=== PATIENT | male | born 1950 | race Caucasian/White ===

== ENCOUNTER 2022-07-15 19:29 | Inpatient (IN) | payer MEDICARE, OTHER ==
[~2022-07-15] VITALS: Ht 175.3 cm; Wt 55.3 kg
--- NOTE | 2022-07-15 19:40 | NUR ---
Dr. Salinas at bedside for MSE.
--- NOTE | 2022-07-15 20:00 | NUR ---
Pt medically cleared by Dr. Salinas.
[2022-07-15] MEDS ORDERED: TRAZ-257 PO (20:04)
[2022-07-15] MEDS ORDERED: DULO-77 PO (20:04)
[2022-07-15] MEDS ORDERED: ACET325T53 PO (20:04)
[2022-07-15] MEDS ORDERED: BISA10SU61 RC (20:04)
[2022-07-15] MEDS ORDERED: LORA0.5T48 PO (20:04)
[2022-07-15] MEDS ORDERED: LACT1CAP73 PO (20:04)
[2022-07-15] MEDS ORDERED: GABA300C PO (20:04)
[2022-07-15] MEDS ORDERED: MULT-225 PO (20:04)
[2022-07-15] MEDS ORDERED: NA P133E RC (20:04)
[2022-07-15] MEDS ORDERED: DOCU-141 PO (20:04)
[2022-07-15] MEDS ORDERED: MAGN400O6 PO (20:04)
[2022-07-15] MEDS ORDERED: VITA-287 PO (20:04)
[2022-07-15] MEDS ORDERED: MELO-107 PO (20:04)
[2022-07-15] MEDS ORDERED: ONDA4TAB5 PO (20:04)
--- NOTE | 2022-07-15 20:14 | NUR ---
Report given to Ann JOHNSON [facility].
[2022-07-15] MEDS ORDERED: FLEET ENEMA 133 ML BOTTLE RC PRN (21:00)
[2022-07-15] MEDS ORDERED: BISACODYL 10 MG SUPP.RECT RC PRN (21:00)
[2022-07-15] MEDS ORDERED: DOCUSATE SODIUM 100 MG CAPSULE PO PRN (21:00)
--- NOTE | 2022-07-15 21:00 | NUR ---
Received report from Jeff nurse on MR Fleming[facility]ovan Stevens. Patient will be admitting to room 139 bed A. Patient is alert and oriented x 3. Breathing easy and regular, Skin is intact except a small tear on patient right forehead which he describes that it will not heal and a scratch niya on his right wrist. Abdomen soft non distended bowel sound present all four quadrants. On assessment patient states that he has neuropathy pain that so bad for that he wants assisted suicide and it is legal in [place]. Patient also says that he takes gabapentin but all it does is to make him drowsy but not does not help with the pain. When ask about suicidal ideation patient states that they wont let me. Patient is disrobed completely, personal items in contraband locker close supervision and safety maintained.
[2022-07-15] MEDS ORDERED: ACETAMINOPHEN 325 MG TABLET PO PRN (21:15)
[2022-07-15 22:55] VITALS: BP 132/71
[2022-07-15] MEDS ORDERED: MAG HYDROX/AL HYDROX/SIMETH 30 ML LIQUID UDC PO PRN (23:00)
[2022-07-15] MEDS ORDERED: ZOLPIDEM 5 MG TABLET PO PRN (23:00)
[2022-07-15] MEDS ORDERED: MAGNESIUM HYDROXIDE 30 ML LIQUID UDC PO PRN (23:00)
[2022-07-15] MEDS ORDERED: BLOOD SUGAR DIAGNOSTIC 1 EACH STRIP VI ONE (23:00)
[2022-07-16 07:55] VITALS: BP 126/96
[2022-07-16 08:21] LABS: ALANINE AMINOTRANSFERASE 14 U/L (16-63); ALKALINE PHOSPHATASE 54 U/L (50-136); ASPARTATE AMINOTRANSFERASE < 5 U/L (15-37); BILIRUBIN,TOTAL 0.6 mg/dL (0.2-1.0); CARBON DIOXIDE 32 mmol/L (21-32); CHLORIDE 104 mmol/L (98-107); GLUCOSE 91 mg/dL (74-106); TOTAL PROTEIN, SERUM 6.1 g/dL (6.4-8.2); UREA NITROGEN, BLOOD 27 mg/dL (7-18)
[2022-07-16] MEDS: MULTIVITAMINS,THERAPEUTIC TABLET PO SCH (09:56)
[2022-07-16] MEDS: VITAMIN B COMPLEX 1 TABLET PO SCH (09:56)
[2022-07-16] MEDS: CULTURELLE CAPSULE PO SCH (09:57)
[2022-07-16] MEDS: MELOXICAM 7.5 MG TABLET PO SCH (09:57)
[2022-07-16] MEDS: TRAMADOL HCL 50 MG TABLET PO PRN ×2 (10:26→21:13)
[2022-07-16] MEDS: GABAPENTIN 300 MG CAPSULE PO SCH ×3 (10:29→16:47)
--- NOTE | 2022-07-16 12:23 | NUR ---
Gps/Pile Driver Operator Helper- Patient verbalized , he is scared to , claimed he does not want to hurt himself. Had been compliant with his routine medications ,guarded, encouraged to continue verbalizing his needs.Claimed pain a little better but it does makes him nervous. Encouraged to attend his group activity,
[2022-07-16] MEDS: LORAZEPAM 0.5 MG TABLET PO PRN (13:40)
--- NOTE | 2022-07-16 15:18 | NUR ---
Called [facility] to find out barbi backpack , claimed he has some belongings and wallet that didnt come with him. No such belonging was noted per facility , claimed they sent alll that necessary (pt. own) No such belongings was noted, per ER at [facility] was [facility] , but does not know the number .
[2022-07-16 16:31] VITALS: BP 152/79
[2022-07-16] MEDS: DULOXETINE 60 MG CAPSULE.DR PO SCH (16:48)
[2022-07-16 20:26] VITALS: BP 120/84
[2022-07-17] MEDS: LORAZEPAM 0.5 MG TABLET PO PRN (03:19)
[2022-07-17] MEDS: ACETAMINOPHEN 325 MG TABLET PO PRN (03:19)
--- NOTE | 2022-07-17 06:41 | NUR ---
Received patient in bed. Awake and alert. This editorial writer was able to engage in a conversation with the patient. Mostly about Faith, the bible, Old musicals and songs. 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 Not sure if that is true or not. The patients speech was tangental and the topics were superficial. Ativan was given during the night when patient showed an increase in anxiety. A pain medication was also given earlier in the shift. Safety Stratiges are in place, including fall and suicide precautions. A verbal contract for safety was made between patient and this editorial writer. Patient denies active SI at this time but is clear about the pain in his legs. Continuing to provide comfort as needed.
[2022-07-17 07:59] VITALS: BP 118/72
[2022-07-17] MEDS: GABAPENTIN 300 MG CAPSULE PO SCH ×3 (08:23→16:46)
[2022-07-17] MEDS: DULOXETINE 60 MG CAPSULE.DR PO SCH ×2 (08:23→16:46)
[2022-07-17] MEDS: MULTIVITAMINS,THERAPEUTIC TABLET PO SCH (08:23)
[2022-07-17] MEDS: MELOXICAM 7.5 MG TABLET PO SCH (08:24)
[2022-07-17] MEDS: CULTURELLE CAPSULE PO SCH (08:24)
[2022-07-17] MEDS: VITAMIN B COMPLEX 1 TABLET PO SCH (08:24)
--- NOTE | 2022-07-17 14:40 | NUR ---
Gps/Roller Skate Repairer- called [facility] to check patient's belongings/valuables , spoked with Ray , was able to checked valuables and are kept in the safe , claimed will hand them to the Exec. Creative Director when she comes in tomorrow. Informed and reassured Topher (patient) that his valuables are in the same ([facility] [phone])
[2022-07-17] MEDS: ENSURE ENLIVE (VAN) 240 ML LIQUID PO SCH ×2 (14:48→16:47)
[2022-07-17 16:16] VITALS: BP 121/64
[2022-07-17 19:58] VITALS: BP 116/66
--- NOTE | 2022-07-18 06:56 | NUR ---
Patient slept 7.45. A verbal contract for safety was made between this senior medical writer and the patient. No requests for pain medication from the patient and no anxiety noted. Safety Stratiges remain in place and ongoing encouragement provided when needed.
[2022-07-18 07:58] VITALS: BP 126/63
[2022-07-18] MEDS: DULOXETINE 60 MG CAPSULE.DR PO SCH ×2 (08:43→16:25)
[2022-07-18] MEDS: ENSURE ENLIVE (VAN) 240 ML LIQUID PO SCH ×2 (08:43→16:25)
[2022-07-18] MEDS: MULTIVITAMINS,THERAPEUTIC TABLET PO SCH (08:43)
[2022-07-18] MEDS: CULTURELLE CAPSULE PO SCH (08:43)
[2022-07-18] MEDS: MELOXICAM 7.5 MG TABLET PO SCH (08:43)
[2022-07-18] MEDS: VITAMIN B COMPLEX 1 TABLET PO SCH (08:43)
[2022-07-18] MEDS: GABAPENTIN 300 MG CAPSULE PO SCH ×3 (08:43→16:25)
[2022-07-18] MEDS: TRAMADOL HCL 50 MG TABLET PO PRN (12:05)
--- NOTE | 2022-07-18 12:16 | NUR ---
DOLORES Initial Discharge Note: Pt currently resides at [facility] located at [address] [place] [address] ([phone]). DOLORES spoke with Brittany in admissions who stated that they cannot confirm at this time if pt is accepted back. Brittany asked this database report writer to send updated clinicals prior to discharge to confirm pt's return. DOLORES communicated this with pt and psychiatrist, Dr. Mathew. Pt stated he is not close with his brother. However, pt gave consent to this database report writer to speak to him if needed (Thor [phone]). DOLORES will continue to work with pt, family and MD to ensure a safe and proper discharge plan.
[2022-07-18 15:27] VITALS: BP 127/64
[2022-07-18] MEDS: LORAZEPAM 0.5 MG TABLET PO PRN (15:52)
--- NOTE | 2022-07-18 16:45 | NUR ---
GPS: Nursing Notes: Destructive Behavior To Self: Patient is awake and responding to his name, gets easily irritable when redirected, impaired judgment, depressed mood and anxious affect, low energy level, isolative and withdrawn in his room, refusing to participate in therapeutic groups, unable to formulate a viable plan for self care, episode of trying to cheek his medications, redirected and explained the pros and cons of medications. Patient swallow his medications, continue to monitor for safety, continue with treatment plan.
[2022-07-18] MEDS: ONDANSETRON HCL 4 MG TABLET PO PRN (17:12)
[2022-07-18 20:00] VITALS: BP 115/70
[2022-07-19] MEDS: TRAMADOL HCL 50 MG TABLET PO PRN ×2 (07:22→16:34)
[2022-07-19] MEDS: LORAZEPAM 0.5 MG TABLET PO PRN (07:23)
[2022-07-19] MEDS: ENSURE ENLIVE (VAN) 240 ML LIQUID PO SCH ×2 (08:00→16:34)
[2022-07-19 08:02] VITALS: BP 116/62
[2022-07-19] MEDS: DULOXETINE 60 MG CAPSULE.DR PO SCH ×2 (08:14→16:34)
[2022-07-19] MEDS: CULTURELLE CAPSULE PO SCH (08:14)
[2022-07-19] MEDS: MULTIVITAMINS,THERAPEUTIC TABLET PO SCH (08:14)
[2022-07-19] MEDS: VITAMIN B COMPLEX 1 TABLET PO SCH (08:14)
[2022-07-19] MEDS: MELOXICAM 7.5 MG TABLET PO SCH (08:14)
[2022-07-19] MEDS: GABAPENTIN 300 MG CAPSULE PO SCH ×3 (08:14→16:33)
[2022-07-19] MEDS: ONDANSETRON HCL 4 MG TABLET PO PRN (12:45)
--- NOTE | 2022-07-19 14:09 | NUR ---
GPS: Nursing Notes: Destructive Behavior To Self: Patient is awake and responding to his name, depressed mood and anxious affect, stated "Nobody woke me up and gave me my medication.." redirected and setting limits during shift, unable to formulate a viable plan for self care, in and out of therapeutic groups, low energy level, continue to monitor for safety, verbally janett for safety, continue to monitor for safety, continue with treatment plan.
[2022-07-19 16:00] VITALS: BP 140/76
[2022-07-19 20:00] VITALS: BP 146/80
[2022-07-19] MEDS: ACETAMINOPHEN 325 MG TABLET PO PRN (21:16)
[2022-07-19] MEDS: MAGNESIUM HYDROXIDE 30 ML LIQUID UDC PO PRN (21:31)
[2022-07-20] MEDS: TRAMADOL HCL 50 MG TABLET PO PRN (06:13)
[2022-07-20 07:50] VITALS: BP 133/68
[2022-07-20] MEDS: ENSURE ENLIVE (VAN) 240 ML LIQUID PO SCH ×2 (08:00→17:00)
[2022-07-20] MEDS: GABAPENTIN 300 MG CAPSULE PO SCH ×3 (08:30→17:16)
[2022-07-20] MEDS: DULOXETINE 60 MG CAPSULE.DR PO SCH ×2 (08:30→17:16)
[2022-07-20] MEDS: MULTIVITAMINS,THERAPEUTIC TABLET PO SCH (08:30)
[2022-07-20] MEDS: MELOXICAM 7.5 MG TABLET PO SCH (08:31)
[2022-07-20] MEDS: CULTURELLE CAPSULE PO SCH (08:31)
[2022-07-20] MEDS: VITAMIN B COMPLEX 1 TABLET PO SCH (08:31)
--- NOTE | 2022-07-20 11:02 | NUR ---
Firearms Report: Paper Bundler completed and submitted a [employer] firearms report for 5150 a danger to self. A copy of report has been placed in patient chart.
[2022-07-20 15:17] VITALS: BP 110/62
--- NOTE | 2022-07-20 16:28 | NUR ---
Pt is depressed, withdrawn, isolative, guarded.Pt stays in room all day.Pt does not participate in group activities. Pt does not interacts with staff or peers. encourage pt to ventilate feelings and to come out of his room and participate in group activities but pt refused. Pt is compliant with nursing care and medications. Pt has an unkept appearance. Pt is able to perform his ADLs with stand by assistance. Pt denies SI and verbally contracted with this telegraphic typewriter repairer for safety. Safety precautions maintain in place.continue to monitor for safety continue with treatment plan.
[2022-07-20 19:49] VITALS: BP 116/64
[2022-07-21] MEDS: ENSURE ENLIVE (VAN) 240 ML LIQUID PO SCH ×2 (08:00→17:00)
[2022-07-21 08:13] VITALS: BP 124/73
[2022-07-21] MEDS: GABAPENTIN 300 MG CAPSULE PO SCH ×3 (08:34→16:56)
[2022-07-21] MEDS: DULOXETINE 60 MG CAPSULE.DR PO SCH ×2 (08:34→16:56)
[2022-07-21] MEDS: MULTIVITAMINS,THERAPEUTIC TABLET PO SCH (08:36)
[2022-07-21] MEDS: VITAMIN B COMPLEX 1 TABLET PO SCH (08:36)
[2022-07-21] MEDS: CULTURELLE CAPSULE PO SCH (08:37)
[2022-07-21] MEDS: MELOXICAM 7.5 MG TABLET PO SCH (08:38)
--- NOTE | 2022-07-21 14:14 | NUR ---
Patient had court hearing today, and air force pilot Kaushal Proctor gave 14 DAY hold probable cause for GD and DTS.
--- NOTE | 2022-07-21 16:09 | NUR ---
Pt is still depressed, withdrawn, isolative, guarded, low energy ,unkept appearance. Pt stays in room all day. Pt does not participate in group activities. Pt does not interacts with staff or peers. Encourage to come out of his room and participate in group activities but pt refused. Reassurance provided. Pt is compliant medications and nursing care. assistance. Pt denies SI and verbally contracted with this marketing underwriter for safety. Safety precautions maintain in place.continue to monitor for safety continue with treatment plan.
[2022-07-21] MEDS: MAGNESIUM HYDROXIDE 30 ML LIQUID UDC PO PRN (17:58)
[2022-07-21 19:48] VITALS: BP 121/71
[2022-07-22] MEDS: ENSURE ENLIVE (VAN) 240 ML LIQUID PO SCH (08:00)
[2022-07-22] MEDS: GABAPENTIN 300 MG CAPSULE PO SCH ×3 (08:51→17:26)
[2022-07-22] MEDS: MULTIVITAMINS,THERAPEUTIC TABLET PO SCH (08:51)
[2022-07-22] MEDS: VITAMIN B COMPLEX 1 TABLET PO SCH (08:51)
[2022-07-22] MEDS: DULOXETINE 60 MG CAPSULE.DR PO SCH ×2 (08:51→17:26)
[2022-07-22] MEDS: CULTURELLE CAPSULE PO SCH (08:51)
[2022-07-22] MEDS: MELOXICAM 7.5 MG TABLET PO SCH (08:52)
--- NOTE | 2022-07-22 13:53 | NUR ---
SW Family Contact Update: The number pt provided for his brother, Thor is incorrect. Pt at this time does not have correct family contact information.
[2022-07-22 15:50] VITALS: BP 141/80
--- NOTE | 2022-07-22 15:51 | NUR ---
Pt is s depressed, withdrawn, isolative, guarded, low energy ,unkept disheveled appearance. Pt refuses to sower and stays in room all day laying in bed. Pt was offered to get shaved but refused. Pt does not want participate in group activities. Pt does not interacts with staff and peers. Reassurance and emotional support provided. Pt is compliant medications Pt denies SI and verbally contracted with this food writer for safety. Safety precautions maintain in place. Continue to monitor for safety continue with treatment plan.
[2022-07-22 20:05] VITALS: BP 136/76
[2022-07-22] MEDS: LORAZEPAM 0.5 MG TABLET PO PRN (21:13)
[2022-07-22] MEDS: TRAMADOL HCL 50 MG TABLET PO PRN (21:13)
--- NOTE | 2022-07-23 02:27 | NUR ---
Received patient withdrawn in his room. C/o pain in his neck and legs. Patient also appeared agitated and anxious. This business writer medicated the patient and encourage a shower. The patient refused. Cotton Cleaner will try again in the am. The patient did not want to engage in any type of conversation, but did make a verbal contract for safety with this business writer for tonight. Safety Stratiges are in place. Continuing to monitor depression, SI and pain. No acute issues noted.
[2022-07-23] MEDS: LORAZEPAM 0.5 MG TABLET PO PRN ×2 (07:40→21:17)
[2022-07-23 08:06] VITALS: BP 122/67
[2022-07-23] MEDS: CULTURELLE CAPSULE PO SCH (08:17)
[2022-07-23] MEDS: VITAMIN B COMPLEX 1 TABLET PO SCH (08:17)
[2022-07-23] MEDS: DULOXETINE 60 MG CAPSULE.DR PO SCH ×2 (08:17→16:09)
[2022-07-23] MEDS: MELOXICAM 7.5 MG TABLET PO SCH (08:17)
[2022-07-23] MEDS: MULTIVITAMINS,THERAPEUTIC TABLET PO SCH (08:17)
[2022-07-23] MEDS: GABAPENTIN 300 MG CAPSULE PO SCH ×4 (08:17→21:03)
[2022-07-23] MEDS: TRAMADOL HCL 50 MG TABLET PO PRN (08:19)
[2022-07-23] MEDS: risperiDONE 0.25 MG TABLET PO SCH ×2 (11:24→16:09)
--- NOTE | 2022-07-23 11:46 | NUR ---
GPS: Nursing Notes: Destructive Behavior To Self: Patient is awake and responding to his name, impaired judgment, poor insight, disoriented, needed a lot prompting to shower, episodes of talking incoherently, confused at times, episodes of sitting on the floor, redirected and reoriented during shift, stated "Why am I my lunch late.." Patient was eating his breakfast, unable to formulate a viable plan for self care, poor grooming, continue to monitor for safety, verbally janett for safety, continue with treatment plan.
[2022-07-23 16:22] VITALS: BP 129/86
[2022-07-23 20:00] VITALS: BP 133/69
--- NOTE | 2022-07-24 02:31 | NUR ---
Received patient alert but disoriented. As the night went on , he became increasingly confused and was hallucinating. The patient stated " Can you see the people over there. The room is filling up with water." Reorientation has been ongoing. The patient has been getting up out of bed with all his blankets trying to leave. Staff has been at the bedside on and off as needed. Safety Stratiges are in place. Monitoring confusion, delusions, pain and psychotic behavior.
[2022-07-24] MEDS: risperiDONE 0.25 MG TABLET PO SCH (08:28)
[2022-07-24] MEDS: DULOXETINE 60 MG CAPSULE.DR PO SCH ×2 (08:28→16:42)
[2022-07-24] MEDS: MELOXICAM 7.5 MG TABLET PO SCH (08:28)
[2022-07-24] MEDS: GABAPENTIN 300 MG CAPSULE PO SCH ×4 (08:28→21:00)
[2022-07-24] MEDS: VITAMIN B COMPLEX 1 TABLET PO SCH (08:28)
[2022-07-24] MEDS: MULTIVITAMINS,THERAPEUTIC TABLET PO SCH (08:28)
[2022-07-24] MEDS: CULTURELLE CAPSULE PO SCH (08:29)
[2022-07-24] MEDS: HYDROXYZINE PAMOATE 25 MG CAPSULE PO PRN (12:05)
[2022-07-24] MEDS: TRAMADOL HCL 50 MG TABLET PO PRN (12:05)
--- NOTE | 2022-07-24 15:01 | NUR ---
GPS: Nursing Notes: Destructive Behavior To Self: Patient is awake and responding to his name, impaired judgment, poor insight, stated "Have you see that blonde behind you.." Talking to unseen others, having AH/VH, covering psychiatrist informed and increased Risperdal dosage, unable to formulate a viable plan for self care, C/O feet pain, but he is running on the hallway, redirected and reoriented during shift, setting limits, but unable to follow through due forgetfulness, denies SI, continue to monitor for safety, unable to formulate a viable plan for self care, continue with treatment plan.
[2022-07-24 16:10] VITALS: BP 123/86
[2022-07-24] MEDS: risperiDONE 0.5 MG TABLET PO SCH (16:42)
[2022-07-24 17:42] LABS: *BILIRUBIN,URIN NEGATIVE (NEGATIVE); *BLOOD, URINE NEGATIVE (NEGATIVE); *CLARITY,URINE CLEAR (CLEAR); *COLOR,URINE YELLOW (YELLOW); *KETONES,URINE NEGATIVE (NEGATIVE); *UROBILINOGEN,URINE 0.2 E.U./dl (NORMAL); LEUKOCYTE ESTERASE ,URINE NEGATIVE (NEGATIVE); UGLUCOSE NEGATIVE (NEGATIVE)
[2022-07-24 17:47] LABS: NITRITE, URINE NEGATIVE (NEGATIVE)
[2022-07-24 19:39] VITALS: BP 108/67
--- NOTE | 2022-07-25 03:11 | NUR ---
Received patient, paranoid and hallucinating, claiming " Those kids under the bed in my room, stole my wallet". Multiple times the staff tried to reorient the patient but it has been ineffective. At on point ,the patient put a full urinal in a paper sack, and was walking around with it. Totally confused, impulsive, argumentative and struggled to comprehend what was being said to him by the staff. Not once however, did the patient verbalize having pain. At the start of the shift the patient refused to take the 2100 dose of Neurontin despite encouragement. Total sleep hours have been few. The patient has been heard talking to himself for long periods of time tonight. The patient also asked for food a few times during the shift so far. Safety Stratiges are in place and ongoing to ensure that the patient does not injure himself due to his impulsive ,confused behavior.
[2022-07-25 07:37] VITALS: BP 115/55
[2022-07-25] MEDS: CULTURELLE CAPSULE PO SCH (08:41)
[2022-07-25] MEDS: risperiDONE 0.5 MG TABLET PO SCH ×2 (08:41→16:46)
[2022-07-25] MEDS: DULOXETINE 60 MG CAPSULE.DR PO SCH ×2 (08:41→16:46)
[2022-07-25] MEDS: VITAMIN B COMPLEX 1 TABLET PO SCH (08:41)
[2022-07-25] MEDS: MELOXICAM 7.5 MG TABLET PO SCH (08:41)
[2022-07-25] MEDS: GABAPENTIN 300 MG CAPSULE PO SCH ×4 (08:41→20:02)
[2022-07-25] MEDS: MULTIVITAMINS,THERAPEUTIC TABLET PO SCH (08:42)
[2022-07-25 16:12] VITALS: BP 119/71
[2022-07-25 19:39] VITALS: BP 126/66
--- NOTE | 2022-07-25 20:55 | NUR ---
GPS: Pt.is calm,cooperative and denies SI at this time. Also denies AH/VH when asked. Pt.is aware of being seen by pain mgmt. doctor earlier. Meds.administered as ordered. No facial grimacing of pain nor any verbalization of pain noted. Safety emphasized.
[2022-07-26] MEDS: GABAPENTIN 300 MG CAPSULE PO SCH ×4 (02:45→22:07)
[2022-07-26 07:45] VITALS: BP 100/55
[2022-07-26] MEDS: DULOXETINE 60 MG CAPSULE.DR PO SCH ×2 (08:20→16:53)
[2022-07-26] MEDS: CULTURELLE CAPSULE PO SCH (08:20)
[2022-07-26] MEDS: risperiDONE 0.5 MG TABLET PO SCH ×2 (08:20→16:53)
[2022-07-26] MEDS: VITAMIN B COMPLEX 1 TABLET PO SCH (08:20)
[2022-07-26] MEDS: MULTIVITAMINS,THERAPEUTIC TABLET PO SCH (08:20)
[2022-07-26] MEDS: MELOXICAM 7.5 MG TABLET PO SCH (08:20)
--- NOTE | 2022-07-26 12:15 | NUR ---
SW Discharge Update: DOLORES spoke with Brittany in admissions at [facility] [address] ([phone]) who stated they are still reviewing pt's clinicals for return to their facility.
--- NOTE | 2022-07-26 12:23 | NUR ---
Discharge Update: Pt has an accepting facility upon discharge on 07/27/22 to [facility] [address] [place] [address] ([phone]) per Octavia corona if pt is not accepted to his returning facility [facility] [address] [facility] [address] ([phone]). DOLORES is awaiting response from Brittany in admissions at [facility].
[2022-07-26 16:11] VITALS: BP 133/66
--- NOTE | 2022-07-26 17:29 | NUR ---
GPS: Nursing Notes: Destructive Behavior To Self: Patient is awake and responding to his name, confused, episodes of talking incoherently, having AH/VH, stated "There are children under the bed...They don't want to leave..", episodes of talking to unseen others, redirected and reoriented to reality during shift, poor grooming, unkempt appearance, needs prompting to participate in therapeutic groups, unable to formulate a viable plan for self care, continue with treatment plan.
[2022-07-26] MEDS: HYDROXYZINE PAMOATE 25 MG CAPSULE PO PRN (20:56)
[2022-07-26 21:47] VITALS: BP 103/52
[2022-07-27] MEDS: GABAPENTIN 300 MG CAPSULE PO SCH (06:31)
[2022-07-27 07:30] VITALS: BP 120/71
[2022-07-27] MEDS: DULOXETINE 60 MG CAPSULE.DR PO SCH (08:32)
[2022-07-27] MEDS: risperiDONE 0.5 MG TABLET PO SCH (08:32)
[2022-07-27] MEDS: MULTIVITAMINS,THERAPEUTIC TABLET PO SCH (08:33)
[2022-07-27] MEDS: CULTURELLE CAPSULE PO SCH (08:33)
[2022-07-27] MEDS: MELOXICAM 7.5 MG TABLET PO SCH (08:34)
[2022-07-27] MEDS: VITAMIN B COMPLEX 1 TABLET PO SCH (08:34)
--- NOTE | 2022-07-27 09:00 | NUR ---
Received pt in room awake responding to his name. Pt is calm on approach. Pt is A/Ox3 ambulatory, needs minimal assistance with ADLs. Pt is able to voice his needs. Pt is compliant with medications and nursing care. Pt denies SI and verbally contacted for safety. Safety measures in place, Reassurance and emotional support provided. Continue to monitor for safety, continue with treatment plan.
--- NOTE | 2022-07-27 09:25 | NUR ---
DOLORES Discharge Note: Pt will be discharged to [facility] [address] [place] [address] ([phone]) via Ambulance transportation at 11AM. DLOORES spoke with admin coordinator, Octavia at the facility who states they are ready to accept the patient today. Pt is aware and agreeable with discharge plan. Pt does not have any family contact at this time. Pt is alert and oriented x4, is unable to plan for self-care at this time. However, pt is willing to accept care at SNF. Pt denies any suicidal or homicidal ideation. Pt will follow-up at the facility with Psychiatrist, Dr. Mathew [phone] and Hi Low Truck Driver, Dr. Luu. Pt presents with calm mood and congruent affect. PHARMACY: [facility] ([phone]) [address] [facility] [address].
--- NOTE | 2022-07-27 11:52 | NUR ---
Received order to discharge pt to [facility] [address] [place] [address] ([phone]) via Ambulance transportation at 11AM. Pt is aware and agreeable with discharge plan. Pt is alert and oriented x3, is unable to plan for self-care at this time. Pt is willing to accept care at SNF. Pt is able to make all needs known Pt denies SI/HI, AH/VH, SOB and Pain. No behavioral needs noted, no acute distress noted. Pt was discharge with all belongings. Reassurance and emotional support provided. Pt left via ambulance at 1115.
== END 2022-07-27 11:15 | DRG 885 ==
LOC: ER 19:43 → GPS 20:26
PROVIDERS: ADMIT Psychiatry & Neurology Psychosomatic Medicine; ATTEND Nurse Practitioner Acute Care
DX: F33.3 Major depressive disorder, recurrent, severe with psychotic symptoms (principal); R45.851 Suicidal ideations; F03.94 Unspecified dementia, unspecified severity, with anxiety; R45.1 Restlessness and agitation; F41.9 Anxiety disorder, unspecified; G89.4 Chronic pain syndrome; M79.7 Fibromyalgia; G93.32 Myalgic encephalomyelitis/chronic fatigue syndrome; M54.12 Radiculopathy, cervical region; M54.16 Radiculopathy, lumbar region; G62.9 Polyneuropathy, unspecified; Z59.01 Sheltered homelessness; I10 Essential (primary) hypertension; R26.89 Other abnormalities of gait and mobility; M19.90 Unspecified osteoarthritis, unspecified site; Z79.899 Other long term (current) drug therapy; S60.811D Abrasion of right wrist, subsequent encounter; Y33.XXXD Other specified events, undetermined intent, subsequent encounter
CPT/HCPCS: 36415; A4663; Q0162